=== PATIENT | male | born 1970 | race Caucasian/White ===

== ENCOUNTER → 2021-05-30 | Outpatient (CLI) | payer BC ==
[2021-05-30 12:08] LABS: Basophils % (A) 1 %; Eosinophils # (A) 0.2 k/uL (0-0.7); Eosinophils % (A) 3 %; HCT 40.3 % (39.0-53.0); HGB 13.6 gm/dL (13.0-17.5); Lymphocytes # (A) 1.7 k/uL (1.0-4.8); Lymphocytes % (A) 29 %; MCH 31.3 pg (25.0-35.0); MCHC 33.7 g/dL (31.0-37.0); MCV 92.8 fL (80.0-100.0); Mean Platelet Volume 6.8; Monocytes # (A) 0.4 k/uL (0-1.0); Monocytes % (A) 7 %; Neutrophils # (A) 3.4 k/uL (1.3-7.7); Neutrophils % (A) 59 %; Platelet Count 258 k/uL (150-450); RBC 4.34 m/uL (4.30-5.90); WBC 5.8 k/uL (3.8-10.6)
[2021-05-30 12:18] LABS: ALT 17 U/L (4-49); AST 19 U/L (17-59); African American GFR (CKD) 77 (>60 ml/min/1.73 sqM); Albumin 4.3 g/dL (3.5-5.0); Albumin/Globulin Ratio 1.5; Alkaline Phosphatase 62 U/L (38-126); Amylase 64 U/L (30-110); Anion Gap 9 mmol/L; Blood Urea Nitrogen 21 mg/dL (9-20); Calcium 10.2 mg/dL (8.4-10.2); Carbon Dioxide 29 mmol/L (22-30); Chloride 98 mmol/L (98-107); Globulin 2.8 g/dL; Glucose 227 mg/dL (74-99); Lipase 214 U/L (23-300); Non-African American GFR(CKD) 67 (>60 ml/min/1.73 sqM); Potassium 3.7 mmol/L (3.5-5.1); Sodium 136 mmol/L (137-145); Total Bilirubin 0.3 mg/dL (0.2-1.3); Total Protein 7.1 g/dL (6.3-8.2)
--- NOTE | 2021-05-30 12:56 | XR ---
EXAMINATION TYPE: XR chest 2V DATE OF EXAM: 05/30/2021 COMPARISON: None HISTORY: Shortness of breath TECHNIQUE: Frontal and lateral views of the chest are obtained. FINDINGS: Scattered senescent parenchymal changes noted. Hyperinflation compatible with COPD. No evidence for infiltrate. No evidence for atelectasis. Heart size is stable. Mediastinal structures are stable and grossly unremarkable. No evidence for hilar prominence. Degenerative changes dorsal spine. IMPRESSION: 1. No evidence for acute pulmonary disease.
--- NOTE | 2021-05-30 13:24 | XR ---
EXAMINATION TYPE: XR abdomen 2V DATE OF EXAM: 05/30/2021 11:03 AM CLINICAL HISTORY: Wheezing. Right upper quadrant pain. TECHNIQUE: Supine and upright images of the abdomen and pelvis were obtained COMPARISON: None. FINDINGS: There is a paucity of small bowel gas, which is nonspecific. Gas and fecal material is seen in non-distended colon. Mildly increased colonic fecal debris of the ascending and proximal transver se colon. No air-fluid levels. There is no visceromegaly, pneumoperitoneum, or abnormal calcification appreciated. The lung bases are clear. Degenerative changes of the sacral spine. Degenerative change s of the bilateral hips, left greater than right. IMPRESSION: 1. Nonspecific bowel gas pattern. 2. Mildly increased colonic fecal debris of the ascending and proximal transverse colon. Correlate fo r possible constipation.
== END | disposition home or self-care (01) ==
LOC: LABWHC1 10:20
PROVIDERS: ATTEND Nurse Practitioner Adult Health
DX: R10.11 Right upper quadrant pain (principal); R06.2 Wheezing; R06.02 Shortness of breath; R19.5 Other fecal abnormalities
CPT/HCPCS: 36415; 71046; 74019; 80053; 82150; 83690; 85025

== ENCOUNTER 2021-06-03 10:00 | Emergency (ER) | payer BC ==
[2021-06-03 10:08] VITALS: RESP 18
[2021-06-03] MEDS ORDERED: SODIUM CHLORIDE 0.9% 1,000 ML IV STA (10:28)
[2021-06-03] MEDS ORDERED: KETOROLAC 15 MG/ML 1 ML VIAL IVP STA (10:28)
[2021-06-03 10:55] LABS: ALT 18 U/L (4-49); AST 24 U/L (17-59); African American GFR (CKD) >90 (>60 ml/min/1.73 sqM); Albumin 4.3 g/dL (3.5-5.0); Alkaline Phosphatase 57 U/L (38-126); Amylase 68 U/L (30-110); Anion Gap 6 mmol/L; Appearance,Urine Clear (Clear); Bilirubin,Urine Negative (Negative); Blood Urea Nitrogen 12 mg/dL (9-20); Blood,Urine Negative (Negative); Carbon Dioxide 30 mmol/L (22-30); Chloride 105 mmol/L (98-107); Color,Urine Light Yellow; Glucose 166 mg/dL (74-99); Glucose,Urine (UA) 2+ (Negative); Ketones,Urine Negative (Negative); Leukocyte Esterase,Urine Negative (Negative); Lipase 204 U/L (23-300); Nitrite,Urine Negative (Negative); Non-African American GFR(CKD) 87 (>60 ml/min/1.73 sqM); Potassium 3.8 mmol/L (3.5-5.1); Protein,Urine Trace (Negative); Sodium 141 mmol/L (137-145); Specific Gravity,Urine 1.017 (1.001-1.035); Total Bilirubin 0.4 mg/dL (0.2-1.3); Total Protein 7.2 g/dL (6.3-8.2); Urobilinogen,Urine <2.0 mg/dL (<2.0)
[2021-06-03 11:04] LABS: Basophils % (A) 1 %; Eosinophils # (A) 0.2 k/uL (0-0.7); Eosinophils % (A) 3 %; HCT 40.3 % (39.0-53.0); HGB 14.4 gm/dL (13.0-17.5); Lymphocytes # (A) 1.8 k/uL (1.0-4.8); Lymphocytes % (A) 30 %; MCH 32.7 pg (25.0-35.0); MCHC 35.8 g/dL (31.0-37.0); MCV 91.4 fL (80.0-100.0); Mean Platelet Volume 6.8; Monocytes # (A) 0.4 k/uL (0-1.0); Monocytes % (A) 7 %; Neutrophils # (A) 3.4 k/uL (1.3-7.7); Neutrophils % (A) 57 %; Platelet Count 297 k/uL (150-450); RBC 4.41 m/uL (4.30-5.90); RDW 12.3 % (11.5-15.5)
--- NOTE | 2021-06-03 11:26 | CT ---
EXAMINATION TYPE: CT abdomen pelvis w con DATE OF EXAM: 06/03/2021 COMPARISON: None HISTORY: Rt flank pain CT DLP: 1274.2 mGycm Automated exposure control for dose reduction was used. CONTRAST: CT scan of the abdomen pelvis is performed with IV Contrast, patient injected with 100 mL of Isovue 3 00. FINDINGS- LUNG BASES- No significant abnormality is appreciated. LIVER/GB- No gross abnormality is appreciated. PANCREAS- No gross abnormality is seen. SPLEEN- No gross abnormality is seen. ADRENALS- No gross abnormality is seen. KIDNEYS/BLADDER-simple appearing left renal cyst. There is nonspecific bilateral perinephric edema wh ich could be correlated with urinalysis. No hydronephrosis. BOWEL-nonspecific bowel gas pattern with no obstruction. Appendix normal.. LYMPH NODES- No greater than 1cm abdominal or pelvic lymph nodes areappreciated. OSSEOUS STRUCTURES-hypertrophic and degenerative change of the spine. OTHER- aorta of normal caliber. Atherosclerotic change of the aorta. IMPRESSION- 1. No hydronephrosis. Bilateral nonspecific perinephric edema correlate with urinalysis and renal fun ction studies. 2. Nonspecific gas pattern with no obstruction.
[2021-06-03] MEDS ORDERED: ACET/COD 300 MG/30 MG STARTER PACK 6 TAB BTL PO STA (12:32)
--- NOTE | 2021-06-03 12:32 | ED ---
General Adult HPI - General Chief complaint: Abdominal Pain Stated complaint: Rt Side Pain Time Seen by Provider: 06/03/21 10:15 Source: patient Mode of arrival: ambulatory Limitations: no limitations - History of Present Illness Initial comments: 51-year-old male presents to the emergency room for a chief complaint of right flank pain. Patient reports he has had right flank pain for one month now. States he was seen in urgent care and they diagnosed him with constipation about 2 days ago. Patient denies any nausea or vomiting. Denies diarrhea. Patient states he is here because he wants to make sure nothing else is going on as he had a bowel movement today and it did not seem to help the pain. He denies fevers. He denies dysuria. Patient has no other complaints at this time including shortness of breath, chest pain, abdominal pain, nausea or vomiting, headache, or visual changes. - Related Data Home Medications Medication Instructions Recorded Confirmed Atorvastatin [Lipitor] 40 mg PO DAILY 06/03/21 06/03/21 Chlorthalidone 25 mg PO DAILY 06/03/21 06/03/21 Empagliflozin/Linagliptin 1 tab PO DAILY 06/03/21 06/03/21 [Glyxambi 25 mg-5 mg Tablet] Ibuprofen [Motrin] 800 mg PO TID PRN 06/03/21 06/03/21 lisinopriL 40 mg PO DAILY 06/03/21 06/03/21 metFORMIN HCL 1,000 mg PO BID 06/03/21 06/03/21 Allergies Allergy/AdvReac Type Severity Reaction Status Date / Time No Known Allergies Allergy Verified 06/03/21 11:40 Review of Systems ROS Statement: Those systems with pertinent positive or pertinent negative responses have been documented in the HPI. ROS Other: All systems not noted in ROS Statement are negative. Past Medical History Past Medical History: No Reported History History of Any Multi-Drug Resistant Organisms: None Reported Past Surgical History: No Surgical Hx Reported Past Psychological History: No Psychological Hx Reported Smoking Status: Never smoker Past Alcohol Use History: Occasional Past Drug Use History: None Reported General Exam Limitations: no limitations General appearance: alert Head exam: Present: atraumatic, normocephalic, normal inspection Eye exam: Present: normal appearance, PERRL, EOMI. Absent: scleral icterus, conjunctival injection, periorbital swelling ENT exam: Present: normal exam, mucous membranes moist Neck exam: Present: normal inspection, full ROM. Absent: tenderness, meningismus, lymphadenopathy Respiratory exam: Present: normal lung sounds bilaterally. Absent: respiratory distress, wheezes, rales, rhonchi, stridor Cardiovascular Exam: Present: regular rate, normal rhythm, normal heart sounds. Absent: systolic murmur, diastolic murmur, rubs, gallop, clicks GI/Abdominal exam: Present: soft, normal bowel sounds. Absent: distended, tenderness, guarding, rebound, rigid Back exam: Present: CVA tenderness (R). Absent: CVA tenderness (L) Course Vital Signs 06/03/21 10:03 Temperature 97.5 F L Pulse Rate 80 Respiratory 18 Rate Blood Pressure 175/96 O2 Sat by Pulse 98 Oximetry Medical Decision Making - Medical Decision Making Vitals are stable. CBC CMP unremarkable. Urinalysis does not show any evidence of infection. CT abdomen and pelvis shows bilateral nonspecific perinephric edema. Recommended to correlate with urinalysis and renal function studies. These were unremarkable. Nonspecific bowel gas pattern with no obstruction. Jose Juan duncan is given pain medication which did help with his pain. At this time patient is stable for discharge follow-up. Patient was recommended to follow up with urology to further investigate CT finding. He will return here for any worsening symptoms in the meantime. - Lab Data Result diagrams: 06/03/21 10:39 06/03/21 10:39 Lab Results 06/03/21 06/03/21 06/03/21 Range/Units 10:39 10:39 10:39 WBC 6.0 (3.8-10.6) k/uL RBC 4.41 (4.30-5.90) m/uL Hgb 14.4 (13.0-17.5) gm/dL Hct 40.3 (39.0-53.0) % MCV 91.4 (80.0-100.0) fL MCH 32.7 (25.0-35.0) pg MCHC 35.8 (31.0-37.0) g/dL RDW 12.3 (11.5-15.5) % Plt Count 297 (150-450) k/uL MPV 6.8 Neutrophils % 57 % Lymphocytes % 30 % Monocytes % 7 % Eosinophils % 3 % Basophils % 1 % Neutrophils # 3.4 (1.3-7.7) k/uL Lymphocytes # 1.8 (1.0-4.8) k/uL Monocytes # 0.4 (0-1.0) k/uL Eosinophils # 0.2 (0-0.7) k/uL Basophils # 0.0 (0-0.2) k/uL Sodium 141 (137-145) mmol/L Potassium 3.8 (3.5-5.1) mmol/L Chloride 105 (98-107) mmol/L Carbon Dioxide 30 (22-30) mmol/L Anion Gap 6 mmol/L BUN 12 (9-20) mg/dL Creatinine 1.00 (0.66-1.25) mg/dL Est GFR (CKD-EPI)AfAm >90 (>60 ml/min/1.73 sqM) Est GFR (CKD-EPI)NonAf 87 (>60 ml/min/1.73 sqM) Glucose 166 H (74-99) mg/dL Calcium 9.0 (8.4-10.2) mg/dL Total Bilirubin 0.4 (0.2-1.3) mg/dL AST 24 (17-59) U/L ALT 18 (4-49) U/L Alkaline Phosphatase 57 (38-126) U/L Total Protein 7.2 (6.3-8.2) g/dL Albumin 4.3 (3.5-5.0) g/dL Amylase 68 (30-110) U/L Lipase 204 (23-300) U/L Urine Color Light Yellow Urine Appearance Clear (Clear) Urine pH 8.0 (5.0-8.0) Ur Specific Sylvester 1.017 (1.001-1.035) Urine Protein Trace H (Negative) Urine Glucose (UA) 2+ H (Negative) Urine Ketones Negative (Negative) Urine Blood Negative (Negative) Urine Nitrite Negative (Negative) Urine Bilirubin Negative (Negative) Urine Urobilinogen <2.0 (<2.0) mg/dL Ur Leukocyte Esterase Negative (Negative) Disposition Clinical Impression: Flank pain Narrative: perinephric edema Disposition: HOME SELF-CARE Condition: Good Instructions (If sedation given, give patient instructions): Flank Pain (ED) Additional Instructions: Please take Tylenol for pain. If pain is severe take Tylenol 3. Do not drive or operate machinery while taking Tylenol 3. Follow up with urology. Return to the emergency room for any worsening symptoms. Is patient prescribed a controlled substance at d/c from ED?: No Referrals: Nonstaff,Physician [Primary Care Provider] - 1-2 days Robb Poole MD [STAFF PHYSICIAN] - 1-2 days Time of Disposition: 12:31
[2021-06-03 12:57] VITALS: BP 162/91; PULSE 71; TEMP 97.9
== END 2021-06-03 12:57 | disposition home or self-care (01) ==
LOC: EC 10:00
DX: R10.9 Unspecified abdominal pain (principal)
CPT/HCPCS: 36415; 80053; 82150; 83690; 85025; 81003; 74177; 99284; 96374; 96361 ×2; J1885; Q9967